=== PATIENT | female | born 1975 | race Caucasian/White ===

== ENCOUNTER 2024-12-30 15:11 | Emergency (ER) | payer OTHER, SELFPAY ==
[2024-12-30 15:23] VITALS: BP 160/71; PULSE 89; RESP 18; TEMP 36.6; O2SAT 99; BMI 30.9
--- NOTE | 2024-12-30 15:26 | DI.RAD.S_ITS ---
PROCEDURE: XR FOOT LT MIN 3V INDICATIONS: pain since sunday TECHNIQUE: 3 views of the foot were acquired. COMPARISON: None. FINDINGS: Bones: There is anatomic alignment. There is acute spiral fracture of the mid to distal diaphysis of the 5th metatarsal. No displacement or angulation. No definite intra-articular extension or osseous fragment. There is mild degenerative disease in the midfoot. Small plantar and superior calcaneal spurs. Soft tissues: No tibiotalar joint effusion. Achilles tendon appears normal. IMPRESSION: Acute nondisplaced 5th metatarsal diaphyseal fracture. Dictated by: Hakan Godoy M.D. on 12/30/2024 at 16:55 Approved by: Hakan Godoy M.D. on 12/30/2024 at 16:56
[2024-12-30 16:38] VITALS: PULSE 72
--- NOTE | 2024-12-30 18:08 | ED.LOWEXIN ---
HPI - Extremity Injury (Lower) <Jacqueline Ross PA-C - Last Filed: 12/31/24 15:08> General Chief Complaint: Extremity Injury, Lower Stated Complaint: Per pt possible broken LT foot Time Seen by Provider: 12/30/24 15:58 Source: patient Mode of arrival: Ambulatory History of Present Illness HPI Narrative: 49-year-old female presents to the ED with a left foot injury sustained 2 days prior to arrival. Patient states that there is swelling of the foot and continued pain which brought her to the ED. No numbness, tingling, weakness. Patient states that the injury happened when she stepped wrong from the last step off her porch and thought she has twisted an ankle. Related Data Previous Rx's ?Medication ?Instructions ?Recorded oxycodone-acetaminophen 5 mg-325 1 tab PO Q6H PRN pain #20 tabs 12/30/24 mg tablet (Percocet) Allergies Allergy/AdvReac Type Severity Reaction Status Date / Time codeine Allergy Nausea Verified 12/30/24 15:24 lisinopril AdvReac Cough Verified 12/30/24 15:24 NSAID Allergy Intermediate DUE TO Uncoded 06/13/17 12:29 GASTRIC BYPASS NOT SUPPOSE TO TAKE NSAIDS Review of Systems <Jacqueline Ross PA-C - Last Filed: 12/31/24 15:08> Constitutional Constitutional: Denies chills, Denies fatigue, Denies fever(s), Denies frequent falls, Denies lethargy and Denies weakness Eyes Eyes: Denies change in vision, Denies eye discharge, Denies irritation and Denies loss of vision ENT Ears, Nose, Mouth, and Throat: Denies change in voice, Denies dizziness, Denies neck pain, Denies sore throat and Denies throat swelling Cardiovascular Cardiovascular: Denies chest pain, Denies irregular heart rhythm, Denies lightheadedness, Denies palpitations, Denies dyspnea, Denies dyspnea on exertion and Denies orthopnea Respiratory Respiratory: Denies cough, Denies dyspnea, Denies dyspnea on exertion and Denies wheezing Gastrointestinal Gastrointestinal: Denies abdominal pain, Denies change in bowel habits, Denies diarrhea, Denies nausea and Denies vomiting Musculoskeletal Musculoskeletal: Denies neck pain and Denies numbness Comments: Left foot pain, swelling, bruising Integumentary/Breasts Skin/Breast: Denies pruritus, Denies erythema, Denies rash and Denies wounds Neurologic Neurologic: Denies behavioral changes, Denies confusion, Denies dizziness, Denies frequent falls, Denies loss of vision, Denies numbness and Denies weakness Psychiatric Psychiatric: Denies anxiety, Denies behavioral changes, Denies confusion, Denies depression, Denies homicidal ideation and Denies suicidal ideation Endocrine Endocrine: Denies fatigue, Denies flushing and Denies palpitations Hematologic/Lymphatic Hematologic/Lymphatic: Denies easy bruising Allergic/Immunologic Allergic/Immunologic: Denies urticaria, Denies throat swelling and Denies wheezing Patient History <Jacqueline Ross PA-C - Last Filed: 12/31/24 15:08> Social History Smoking Status: Never smoker Smoking Status: Never smoker Exam <Jacqueline Ross PA-C - Last Filed: 12/31/24 15:08> Narrative Exam Narrative: Const General:?cooperative, healthy appearing and comfortable [facility] Head:?normal to inspection Ears:?hearing grossly normal bilaterally Nose:?external nose normal Face and sinus:?normal facial exam and sinuses nontender Mouth:?oral mucosae normal Throat:?posterior oropharynx normal Eyes General:?appearance normal, both eyes and all related structures Neck Neck:?normal visual inspection and no lymphadenopathy noted Resp Effort & Inspection:?normal respiratory effort Auscultation:?clear to auscultation bilaterally Cardio Rate:?regular rate Rhythm:?regular rhythm Musculoskeletal Left foot swelling, bruising, pain on the lateral aspect. Neuro General:?patient alert, patient awake and patient oriented x3 Initial Vital Signs Initial Vital Signs: Vital Signs Temperature 98 F 12/30/24 15:23 Pulse Rate 89 12/30/24 15:23 Respiratory Rate 18 12/30/24 15:23 Blood Pressure 160/71 H 12/30/24 15:23 Pulse Oximetry 99 12/30/24 15:23 Oxygen Delivery Method Room Air 12/30/24 15:23 <James Nicolas MD - Last Filed: 01/18/25 00:19> Initial Vital Signs Initial Vital Signs: Vital Signs Temperature 98 F 12/30/24 15:23 Pulse Rate 89 12/30/24 15:23 Respiratory Rate 18 12/30/24 15:23 Blood Pressure 160/71 H 12/30/24 15:23 Pulse Oximetry 99 12/30/24 15:23 Oxygen Delivery Method Room Air 12/30/24 15:23 Course <Jacqueline Ross PA-C - Last Filed: 12/31/24 15:08> Orders Ordered: Discontinued Medications Oxycodone/Acetaminophen (Oxycodone/Acetaminophen 5/325 Tablet) 1 tab PO NOW ONE Stop: 12/30/24 18:24 Last Admin: 12/30/24 18:32 Dose: 1 tab Documented By: RB Vital Signs Vital signs: Vital Signs - 8 hr 12/30/24 15:23 12/30/24 16:38 Temperature 98 F Pulse Rate 89 Pulse Rate [Left Dorsalis Pedis] 72 Respiratory Rate 18 Blood Pressure 160/71 H Pulse Oximetry 99 Oxygen Delivery Method Room Air <James Nicolas MD - Last Filed: 01/18/25 00:19> Orders Ordered: Discontinued Medications Oxycodone/Acetaminophen (Oxycodone/Acetaminophen 5/325 Tablet) 1 tab PO NOW ONE Stop: 12/30/24 18:24 Last Admin: 12/30/24 18:32 Dose: 1 tab Documented By: RB Vital Signs Vital signs: Vital Signs - 8 hr 12/30/24 15:23 12/30/24 16:38 Temperature 98 F Pulse Rate 89 Pulse Rate [Left Dorsalis Pedis] 72 Respiratory Rate 18 Blood Pressure 160/71 H Pulse Oximetry 99 Oxygen Delivery Method Room Air MDM - Extremity Injury (Lower) <Jacqueline Ross PA-C - Last Filed: 12/31/24 15:08> MDM Narrative Medical decision making narrative: 49-year-old female presents to the ED with a left foot injury sustained 2 days prior to arrival. Concern for fracture/dislocation versus musculoskeletal sprain/strain versus other. X-ray was obtained which shows an acute nondisplaced 5th metatarsal diaphyseal fracture. Discussed findings with patient. Patient was fitted in a boot, weight-bearing as tolerable. Patient was given a dose of Percocet in the ED, prescription given for the next few days. Recommend follow-up with PCP/ortho specialist. ED return precautions discussed with patient. Patient verbalized understanding. Medical records reviewed: Yes <James Nicolas MD - Last Filed: 01/18/25 00:19> MDM Narrative Medical decision making narrative: 49-year-old female presents to the ED with a left foot injury sustained 2 days prior to arrival. Concern for fracture/dislocation versus musculoskeletal sprain/strain versus other. X-ray was obtained which shows an acute nondisplaced 5th metatarsal diaphyseal fracture. Discussed findings with patient. Patient was fitted in a boot, weight-bearing as tolerable. Patient was given a dose of Percocet in the ED, prescription given for the next few days. Recommend follow-up with PCP/ortho specialist. ED return precautions discussed with patient. Patient verbalized understanding. Medical records reviewed: Yes I was present and available for consultation during this patient's visit but was not involved directly with the care. Discharge Plan Departure Patient Disposition: Home Clinical Impression: Fracture of fifth metatarsal bone of left foot Instructions: DI for Foot Fracture Activity Restrictions/Additional Instructions: You were evaluated in the emergency department today for a foot injury. You do have a foot fracture, you have been fitted with a boot for it please keep the boot on for the next 6-8 weeks. Weightbearing as permissible. Please follow-up with your PCP or ortho specialist for further evaluation. You have been prescribed pain medication for the next few days. Return to the ED if you have worsening symptoms, numbness, tingling, weakness. Prescriptions: New oxycodone-acetaminophen [Percocet] 5-325 mg tablet 1 tab PO Q6H PRN (Reason: pain) Qty: 20 0RF Stand Alone Forms: Patient Portal/API
[2024-12-30 18:33] VITALS: BP 140/68; PULSE 76; RESP 18; TEMP 36.6; O2SAT 98
== END 2024-12-30 18:34 | disposition home or self-care (01) ==
PROVIDERS: Emergency Provider Student in an Organized Health Care Education/Training Program
DX: S92.355A Nondisplaced fracture of fifth metatarsal bone, left foot, initial encounter for closed fracture (principal); X50.1XXA Overexertion from prolonged static or awkward postures, initial encounter
CPT/HCPCS: 73630; 99283